=== PATIENT | female | born 1970 | race Caucasian/White ===

== ENCOUNTER 2020-06-17 12:03 | Outpatient (REF) | payer OTHER, SELFPAY | END 2020-06-17 12:04 | disposition home or self-care (01) | LOC: HO.LAB 12:03 | PROVIDERS: Visit Provider Internal Medicine | DX: Z20.822 Contact with and (suspected) exposure to COVID-19 (principal) | CPT/HCPCS: 36415; C9803; U0003; U0005 ==

== ENCOUNTER 2021-05-05 15:17 | Outpatient (REF) | payer OTHER, SELFPAY ==
[2021-05-05 15:42] LABS: COVID-19 Test Negative (Negative)
== END 2021-05-05 15:18 | disposition home or self-care (01) ==
LOC: HO.LAB 15:17
PROVIDERS: Visit Provider Internal Medicine
DX: Z20.822 Contact with and (suspected) exposure to COVID-19 (principal)
CPT/HCPCS: 87635; C9803

== ENCOUNTER 2021-08-11 15:31 | Outpatient (REF) | payer OTHER, SELFPAY ==
[2021-08-11 15:49] LABS: MANUAL DIFF FLAG NO
[2021-08-11 16:27] LABS: Basophils Absolute Auto 0.1 X10*3/uL (0.0-0.2); Basophils Percent Auto 0.8 % (0-2); Eosinophils Absolute Auto 0.3 X10*3/uL (0.0-0.4); Eosinophils Percent Auto 3.8 % (0-4); Hematocrit 40.5 % (37.0-47.0); Hemoglobin 13.4 g/dl (12.0-16.0); Imm Gran Abs Auto 0.01 X10*3/uL (0.00-0.03); Imm Gran Pct Auto 0.2 % (0.0-0.4); Lymphocytes Absolute Auto 2.6 X10*3/uL (1.2-4.9); Lymphocytes Percent Auto 40.2 % (20-40); Mean Corpuscular HGB Conc 33.1 g/dl (31.0-35.0); Mean Corpuscular Hemoglobin 30.5 pg (27.0-33.0); Mean Platelet Volume 10.7 fL (9.4-12.3); Monocytes Absolute Auto 0.4 X10*3/uL (0.1-1.2); Monocytes Percent Auto 6.1 % (2-11); Neutrophils Absolute Auto 3.2 x10*3/uL (2.0-8.3); Neutrophils Percent Auto 48.9 % (45-73); Platelet Count 258 X10*3/uL (160-400); Red Cell Distribution Width 12.7 % (11.0-16.0); White Blood Count 6.6 X10*3/uL (4.8-10.8)
[2021-08-11 16:42] LABS: Alanine Aminotransferase 14 U/L (0-31); Albumin Level 4.5 g/dL (3.5-5.0); Alkaline Phosphatase 50 U/L (39-117); Anion Gap 11 (12-20); Aspartate Amino Transferase 20 U/L (5-31); Bilirubin Total 0.9 mg/dL (0.0-1.0); Blood Urea Nitrogen 13 mg/dL (9-16); Calcium 10.3 mg/dL (8.4-10.2); Carbon Dioxide 29 mmol/L (22-29); Chloride 104 mmol/L (96-108); Cholesterol 175 mg/dL; Estimated Glomerular Filt Rate > 60; Glucose Random 88 mg/dL (60-115); HDL Cholesterol 69 mg/dL; LDL Cholesterol Calculated 92 mg/dl; Potassium 4.2 mmol/L (3.3-5.1); Sodium 140 mmol/L (135-145); Total Protein 6.9 g/dL (6.5-8.0); Triglycerides 73 mg/dL
[2021-08-11 16:45] LABS: D Dimer High Sensitivity < 150 NG/ML
[2021-08-11 16:58] LABS: Thyroid Stimulating Hormone 1.27 uIU/mL (0.32-4.0)
== END 2021-08-11 15:32 | disposition home or self-care (01) ==
LOC: HO.LAB 15:31
PROVIDERS: PCP Internal Medicine; Visit Provider Internal Medicine
DX: Z00.00 Encounter for general adult medical examination without abnormal findings (principal); F90.2 Attention-deficit hyperactivity disorder, combined type; M54.50 Low back pain, unspecified; R43.8 Other disturbances of smell and taste; M70.52 Other bursitis of knee, left knee
CPT/HCPCS: 36415; 80053; 80061; 84443; 85025; 85379

== ENCOUNTER 2024-05-09 08:38 | Outpatient (REF) | payer OTHER, SELFPAY ==
--- NOTE | ~2024-05-09 | XR_ITS ---
CLINICAL HISTORY: M25.569 - Pain in unspecified knee 3 view left knee Comparison: None Findings: Bones intact. No dislocations. No significant loss of joint space, osteophytes, or erosions. No joint effusion. No radiopaque foreign body. IMPRESSION: 1. No acute findings. This document has been electronically signed by: Arvind Banegas MD on 05/10/2024 10:01:36
--- OUTSIDE RECORDS SUMMARY | 2024-05-12 12:48 | XMS_ITS | Patient Health Record ---
Author Organization [facility] Address [address] [place] [address] Care Team Providers Care Electric Transfer Operator Name Role Phone Leyla Hurd Primary Care Provider Unavailab Jeancarlos Garcia Unavailable [phone] Benigno Thomas Jr Unavailable ALLERGIES Allergen (clinical drug ingredient) Drug/Non Drug Allergy documented on EMR Reaction Allergy Type Onset Date Status Penicillin Unknown Drug Allergy Active REASON FOR REFERRAL No Information MEDICATIONS Medication SIG (Take, Route, Fr equency, Duration) Notes Start Date End Date Status Multivitamin Adult - 1 tablet Orally Onc e a day for 30 day(s) Active Vyvanse 70 MG Oral for 30 Acti ve SOCIAL HISTORY Tobacco Use: Social History Observation Description Date Details (start date - stop date) Never Smoker NA - NA Sex Assigned At : Social History Observation Description Sex Assigned At Unknown Tobacco Use/Smoking Question Answer Notes Patient is a nonsmoker Alcohol Screen Question Answer Notes Did you have a drink containing alcohol in the p ast year? No Points 0 Interpretation Negative PROBLEMS Problem Type ICD Code Onset Dates Problem Status W/U Status Risk SNOMED Code Notes Problem Colon cancer screening (Z12.11) Active confirmed Colon cancer screening (934046547) Problem Encounter for other preprocedural examination (Z01.818) Active confirmed Pre-procedure evaluation check (559454350) VITAL SIGNS Blood pressure diastolic 00 mm Hg 05/06/2024 Height 5 ft 4 in in 05/06/2024 Blood pressure systolic 00 mm Hg 05/06/2024 Weight 131 lbs 05/06/2024 BMI 22.48 kg/m2 05/06/2024 Encounters Encounter Location Date Provider Diagnosis [facility] [address] [place] [address] 05/06/2024 Jeancarlos Alonso Colon cancer screeni ng Z12.11 and Encounter for other preprocedural examination Z01.818 [facility] [address] [place] [phone] 07/09/2023 Benigno Thomas Jr ASSESSMENTS Encounter Date Diagnosis Assessment Notes Treatment Notes Treatment Clinical Notes 05/06/2024 Colon cancer screening (ICD-10 - Z12.11) 05/06/2024 Encounter for other preprocedural examination (ICD-10 - Z01.818) PLAN OF TREATMENT Future Test Test Name Order Date COLONOSCOPY 05/06/2024 Next Appt Details Provider Name:Jeancarlos Alonso , 08/22/2024 08:30:00 AM, [address] [facility] , [place], [place], [phone], Insurance Providers Payer Name Payer Address Payer Phone Subscriber Number Group Number Insured Name Patient Relationship to Insured Coverage Start Date Coverage End Date [facility] [address] [address] [place], [place] [id number] CHAIM GORDON Self - patient is the insured MEDICAL (GENERAL) HISTORY Medical History History ICD Code Denies [place],DM,CVA,Lung disease,renal dise ase Seasonal allergies ADHD Surgical History Surgery Date(Month/Year) Breast augmentation Skin cancer-squamous cell
--- OUTSIDE RECORDS SUMMARY | 2024-05-12 12:48 | XMS_ITS ---
Author Organization [facility] Address [address] [place] [address] Care Team Providers Care Intensive Care Unit Registered Nurse Name Role Phone Harpreetverito Leyla Primary Care Provider UnavailJeancarlos Schroeder [phone] ALLERGIES Allergen (clinical drug ingredient) Drug/Non Drug Allergy documented on EMR Reaction Allergy Type Onset Date Status Penicillin Unknown Drug Allergy Active REASON FOR VISIT Patient presents today for a screening colonoscopy MEDICATIONS Medication SIG (Take, Route, Fr equency, [...] screening (Z12.11) Active confirmed Colon cancer screening (920240474) Problem Encounter for other preprocedural examination (Z01.818) Active confirmed Pre-procedure evaluation check (131928808) VITAL SIGNS BMI 22.48 kg/m2 05/06/2024 Blood pressure systolic 00 mm Hg 05/06/19 25 Blood pressure diastolic 00 mm Hg 025 Height 5 ft 4 in in 05/06/2024 Weight 131 lbs 05/06/2024 Encounters Encounter Location Date Provider Diagnosis [facility] [address] [place] [address] 05/06/2024 Jeancarlos Alonso Colon cancer screeni ng Z12.11 and Encounter for other preprocedural examination Z01.818 ASSESSMENTS Encounter Date Diagnosis Assessment Notes Treatment Notes Treatment Clinical Notes 05/06/2024 Colon cancer screening (ICD-10 - Z12.11) 05/06/2024 Encounter for other preprocedural examination (ICD-10 - Z01.818) PLAN OF TREATMENT Future Test Test Name Order Date COLONOSCOPY 05/06/2024 Next Appt Details Provider Name:Jeancarlos Taylor Alonso , 08/22/2024 08:30:00 AM, [address] [place] [address] , [place], [place], [phone],
--- OUTSIDE RECORDS SUMMARY | 2024-05-12 12:48 | XMS_ITS ---
Author Organization [facility] Address [address] [place] [phone] Care Team Providers Care Reprint Sorter Name Role Phone Leyla Hurd Primary Care Provider Unavailab Jeancarlos Garcia Unavailable [phone] Benigno Thomas Jr Unavailable Encounters Encounter Location Date Provider Diagnosis [facility] [address] [place] [phone] 07/09/2023 Benigno Thomas Jr PLAN OF TREATMENT Next Appt Details Provider Name:Jeancarlos Alonso , 08/22/2024 08:30:00 AM, [address] [place] [address] , [place], [place], [phone],
== END 2024-05-09 08:39 | disposition home or self-care (01) ==
LOC: HO.HOSX 08:38
PROVIDERS: Visit Provider Physician Assistant
DX: M25.562 Pain in left knee (principal); M23.92 Unspecified internal derangement of left knee
CPT/HCPCS: 73562; 99202